=== PATIENT | male | born 1985 | race Two or more races ===

== ENCOUNTER → 2021-03-19 | Outpatient (CLI) | payer SELFPAY ==
[~2021-03-19] MED LIST: HYDR-2765 PO
== END ==
LOC: LAB 10:15
PROVIDERS: ATTEND Orthopaedic Surgery
DX: Z01.812 Encounter for preprocedural laboratory examination (principal); Z20.822 Contact with and (suspected) exposure to COVID-19
CPT/HCPCS: U0003; U0005

== ENCOUNTER 2021-03-23 08:23 | Day surgery (SDC) | payer SELFPAY ==
[~2021-03-23] VITALS: Ht 177.8 cm; Wt 104.0 kg
[~2021-03-23 08:23] MED LIST changes: -HYDR-2765 PO; +IV RINGERS,LACTATED 1000ML 1,000 ML IV SCH; +PROCHLORPERAZINE 10 MG/2 ML VIAL. IVP PRN; +fentaNYL PF VIAL 100 MCG/2 ML VIAL IVP PRN
[2021-03-23] MEDS ORDERED: LIDOCAINE 1% PF 5 ML VIAL. ONE (08:28)
[2021-03-23] MEDS ORDERED: ONDANSETRON PF 4 MG/2 ML VIAL. ONE (08:28)
[2021-03-23] MEDS ORDERED: DEXAMETHASONE SOD PHOS 4 MG/ML VIAL ONE (08:28)
[2021-03-23] MEDS ORDERED: PROPOFOL 10 MG/ML (20ML) VIAL. IV ONE (08:28)
[2021-03-23] MEDS ORDERED: fentaNYL PF VIAL 100 MCG/2 ML VIAL ONE ×2 (08:29→11:07)
[2021-03-23] MEDS ORDERED: LIDOCAINE 2% TOPICAL JELLY 5GM TUBE. TP ONE (08:30)
[2021-03-23 08:48] VITALS: BP 143/73
[2021-03-23] MEDS ORDERED: BUPIVACAINE-EPI 0.25% 30 ML VIAL KIT. ONE (09:35)
[2021-03-23] MEDS ORDERED: GLYCOPYRROLATE 1 MG/5 ML VIAL. ONE (11:15)
--- NOTE | 2021-03-23 12:30 | PDOC4 ---
OPERATIVE NOTE Date: Date: Mar 23, 2021 Pre-Op Diagnosis: Possible ACL tear medial meniscal tear left knee Post-Op Diagnosis: ACL tear with medial meniscal tear and chondral lesion medial femoral condyle left knee Procedure Performed: Left knee arthroscopy with chondroplasty medial femoral condyle partial medial meniscectomy ACL reconstruction with allograft Surgeon: Carol Anesthesia Type: General Blood Loss: 50 cc Specimans Obtained: None Findings: See dictation Complications: None LUCY LOVE Jr. DO Mar 23, 2021 12:30
[2021-03-23] MEDS ORDERED: HYDR-2765 PO (12:37)
--- NOTE | 2021-03-23 12:39 | DISCH ---
DISCHARGE INSTRUCTIONS Condition on Discharge Condition on Discharge: Stable Activity After Discharge Activity Instructions for Disc: Avoid exertion Driving Instructions after Dis: No driving for 2 weeks Weight Bearing Status after Di: Partial weight bearing Wound Incision Care Wound/Incision Care: Ice to area for comfort, Keep wound elevated Follow-Up Follow up with: 10 to 14 days Treatment/Equipment after DC Adaptive Equipment Issued: Brace/splint LUCY LOVE Jr. DO Mar 23, 2021 12:39
--- NOTE | 2021-03-23 12:44 | OP ---
DATE OF SURGERY: 03/23/2021 PREOPERATIVE DIAGNOSIS: Possible ACL tear with medial meniscal tear, left knee. POSTOPERATIVE DIAGNOSIS: Medial meniscal tear with ACL tear, left knee. PROCEDURE: Left knee arthroscopy with partial medial meniscectomy and ACL reconstruction with allograft. SURGEON: Iain Medina Jr, DO MARKING MACHINE TENDER: Po Burnham. ANESTHESIA: General. COMPLICATIONS: None. ESTIMATED BLOOD LOSS: 50 mL PROCEDURE: The patient was taken to the operative suite, given a general anesthetic. The left lower extremity was then placed in a knee felder, prepped and draped in sterile fashion. Inferomedial and inferolateral portals were established. Knee was insufflated with saline. Visualization of the patellofemoral joint, noted this to be intact and stable. Scope was then taken into the lateral compartment, which was noted to be intact. No loose bodies were noted. No lesions were noted at this point. Probing of the lateral meniscus revealed this to be stable again. Chondral surfaces were noted to be stable. Upon entering the area of the intercondylar region, the ACL was noted to have a tear. This had healed back to the PCL. Therefore, the remanant of this was removed in its entirety. The lateral wall was completely devoid of any attachment of the ACL. Scope was then taken into the medial compartment, there was noted to be deep grade 3 changes to the medial femoral condyle approximately 10-20 degrees of flexion; however, this was unstable and debrided back to stable tissue and no bone was exposed at that point, but very minimal in approximately 2-3 mm area in the center of this lesion. Scope remained in the medial compartment, there was noted to be a split tear and a horizontal tear along the posterior medial horn of the meniscus entering into the anterior one-half and using basket forceps and shaver due to the fact that this could not be repaired due to the tissue quality a partial medial meniscectomy was undertaken. The root was noted to be stable with probing. The remnant was noted to be stable after probing. The graft was then prepared on the back table and after the guide was placed for the femoral side this was placed along the femur for the position of the graft of the femoral tunnel. This was then through a stab wound through the lateral aspect of the skin and subcutaneous tissues and IT band. The guide was placed down on to the femur laterally. This was hit with a mallet to further place this in the femur. The drill was then placed through this area down into the intercondylar region. The FlipCutter was then 9.5 cutter and was flipped and then drilled for a 20 mm femoral tunnel. This was drilled back out into the tunnel and was removed in its entirety with a Malone wire was placed down through this area. This was noted to be captured and the suture was captured and taken out through the inferolateral portal and held appropriately. Following this, the guide for the tibia was placed in the original site for the tibial insertion for the ACL and then another stab incision and incision was made through skin and subcutaneous tissues down to the tibial aspect of the joint for the tibial tunnel. The guide was then placed in appropriate position and this was drilled all the way through for the RetroCutter which was captured and then the tibial tunnel was prepared. Following this, this was cleaned up in all aspects, especially the tibial tunnel. The sutures that her through the femur were then pulled down through the tibial tunnel. The graft was taken on the back table, which had been tensioned and the button was then pulled up through the tibial tunnel up into the femoral side and locked over the femur. The ACL graft was then pulled through the femoral tunnel into the tibial tunnel secured appropriately with the button. This was noted to be a very stable construct and then the button was then placed distally and was also tightened down appropriately. This was taken through multiple ranges of motion approximately 30-40 cycles and then retensioned on both sides. This was noted to be very stable graft with probing. No other lesions or problems were noted. Therefore, this was copiously irrigated. All sutures were then tied and then cut. Superficial tissue and skin was reapproximated. Local was placed in the wound site. Sterile dressing was applied. Tourniquet was deflated with good return of pulses and capillary refill. The patient was then taken from the operative bed to the postoperative bed, taken to the PACU in stable condition. SOLO/ADDY ALEJO: Sonali TID: [id number]
[2021-03-23] MEDS ORDERED: MORPHINE SULFATE 2 MG/ML INJ. ONE (13:02)
[2021-03-23] MEDS: MORPHINE SULFATE 2 MG/ML INJ. IVP PRN ×2 (13:04→13:21)
[2021-03-23] MEDS ORDERED: HYDROmorphone 2 MG/ML INJ. ONE (13:11)
[2021-03-23] MEDS ORDERED: HYDROcodone/APAP 7.5/325MG 1 TAB TABLET PO ONE (13:15)
[2021-03-23] MEDS: HYDROmorphone 2 MG/ML INJ. IVP PRN ×4 (13:15→14:00)
--- NOTE | 2021-03-23 13:24 | PREOP HP ---
DATE OF SERVICE: 03/23/2021 He is seen in preoperative area for continued left knee pain. He does not remember a specific injury, did have a remote injury to the knee. However, the only complaints of pain at this point was some mild instability. The main complaint, however, is pain and he points to the medial aspect of the joint. He has undergone ice, elevation, anti-inflammatories and modifying activities accordingly, but nothing is helping his pain overall and his is in agreement. REVIEW OF SYSTEMS: Unremarkable other than his knee symptoms of that left knee. PAST MEDICAL HISTORY: Unremarkable. PAST SURGICAL HISTORY: Unremarkable. FAMILY HISTORY: Unremarkable. SOCIAL HISTORY: The patient does not use any tobacco. Alcohol is minimal at this point, approximately 2 times to 4 times per month maximum. MEDICATIONS: None. ALLERGIES: No known drug allergies. PHYSICAL EXAMINATION: GENERAL: He is alert and oriented x 3. EENT: Within normal limits. No abnormalities are noted. CHEST: Clear to auscultation. HEART: Rate is of regular rate and rhythm. ABDOMEN: Unremarkable as far as normal bowel sounds and no pain throughout the stomach and abdominal region. EXTREMITIES: His examination of the left knee reveals there to be no obvious instability, but very mild laxity with a soft endpoint of the AP plane, but again no gross instability with a lot of pain with palpation of the medial compartment, very positive Apley's test at this point. There is no instability in the varus and valgus plane. Range of motion 0-120. DIAGNOSTIC DATA: The MRI was again reviewed and talked with the patient. He understands the assessment being left knee medial meniscal tear, ACL tear, possible. PLAN: At this time, he understands the possibility of an ACL reconstruction with an allograft or autograft depending on the situation. He also will undergo medial meniscal repair or meniscectomy. We have therefore gone over the risks, complications as well as benefits and expectations of surgery, postoperative protocol and followup. We will get this set up in the next few minutes and he will see Anesthesia and go for that surgery. SOLO/ALEJO/BRITANY ALEJO: Sonali TID: [id number]
[2021-03-23 13:41] VITALS: BP 135/82
== END 2021-03-23 14:12 | disposition home or self-care (01) ==
LOC: SURG 08:23
PROVIDERS: ATTEND Orthopaedic Surgery
DX: S83.242A Other tear of medial meniscus, current injury, left knee, initial encounter (principal); S83.512A Sprain of anterior cruciate ligament of left knee, initial encounter; Z79.899 Other long term (current) drug therapy; Z98.890 Other specified postprocedural states; Z72.89 Other problems related to lifestyle; X58.XXXA Exposure to other specified factors, initial encounter; Y93.89 Activity, other specified; Y92.89 Other specified places as the place of occurrence of the external cause; Y99.8 Other external cause status
CPT/HCPCS: 29881; 29888; A4930; C1713; J0690; J1100; J1170; J2270; J2405; J2704; J3010; J3490; A4452